=== PATIENT | male | born 1950 | race Caucasian/White ===

== ENCOUNTER → 2019-04-13 | Outpatient (CLI) | payer BC ==
[2019-04-13 11:11] LABS: ALBUMIN 3.3 g/dL (3.4-4.8); POTASSIUM 4.5 mmol/L (3.5-5.1)
[2019-04-13 11:12] LABS: CALCIUM 8.6 mg/dL (8.3-10.5)
[2019-04-13 11:15] LABS: HEMATOCRIT 42.4 % (42.0-52.0); HEMOGLOBIN 14.4 g/dL (13.5-18.0); MEAN CELL VOLUME 97 fl (78-100); MEAN CORPUSCULAR HEMOGLOBIN 33 pg (27-31); MEAN CORPUSCULAR HGB CONC 34 g/dL (33-37); PLATELET COUNT 90 K/mm3 (130-400); RED BLOOD COUNT 4.38 M/mm3 (4.20-5.60); RED CELL DISTRIBUTION WIDTH 15.2 % (11.5-14.5); TOTAL BILIRUBIN 2.4 mg/dL (0.2-1.2); WHITE BLOOD COUNT 5.5 K/mm3 (4.8-10.8)
[2019-04-13 11:20] LABS: PROTHROMBIN TIME 11.3 SECONDS (9.0-12.0)
[2019-04-13 12:15] LABS: LYMPHOCYTE 21 % (20-51); MONOCYTE 11 % (3-10); NEUTROPHILS 62 % (42-75)
== END ==
LOC: LAB 10:49
DX: D69.6 Thrombocytopenia, unspecified (principal); I85.10 Secondary esophageal varices without bleeding; K76.6 Portal hypertension

== ENCOUNTER 2019-09-25 18:27 | Emergency (ER) | payer BC ==
[2019-09-25 18:59] LABS: HEMATOCRIT 40.6 % (42.0-52.0); HEMOGLOBIN 14.1 g/dL (13.5-18.0); MEAN CELL VOLUME 94 fl (78-100); MEAN CORPUSCULAR HEMOGLOBIN 33 pg (27-31); MEAN CORPUSCULAR HGB CONC 35 g/dL (33-37); MEAN PLATELET VOLUME 10.8 fl (7.4-10.4); PLATELET COUNT 63 K/mm3 (130-400); RED BLOOD COUNT 4.31 M/mm3 (4.20-5.60); RED CELL DISTRIBUTION WIDTH 14.9 % (11.5-14.5); WHITE BLOOD COUNT 7.8 K/mm3 (4.8-10.8)
[2019-09-25] MEDS ORDERED: PROAIR HFA0.09 MG/AC IH (19:05)
[2019-09-25 19:07] LABS: NEUTROPHILS 77 % (42-75)
[2019-09-25 19:08] LABS: LYMPHOCYTE 14 % (20-51); MONOCYTE 8 % (3-10)
[2019-09-25] MEDS ORDERED: NADOLOL20 M1 PO (19:08)
[2019-09-25] MEDS ORDERED: ANORO ELLIPTA1 POW IH (19:09)
[2019-09-25] MEDS ORDERED: FUROSEMIDE40 MG PO (19:09)
[2019-09-25] MEDS ORDERED: SPIRONOLACTONE50 M1 PO (19:09)
[2019-09-25 19:10] LABS: ALBUMIN 3.3 g/dL (3.4-4.8); POTASSIUM 3.8 mmol/L (3.5-5.1)
[2019-09-25] MEDS ORDERED: VITAMIN B122500 MC1 PO (19:10)
[2019-09-25] MEDS ORDERED: CRANBERRY500 M3 PO (19:10)
[2019-09-25 19:11] LABS: CALCIUM 8.3 mg/dL (8.3-10.5)
[2019-09-25] MEDS ORDERED: OMEPRAZOLE40 MG PO (19:11)
[2019-09-25 19:12] LABS: TOTAL PROTEIN 6.1 g/dL (6.2-8.1)
[2019-09-25 19:14] LABS: TOTAL BILIRUBIN 4.5 mg/dL (0.2-1.2)
[2019-09-25 19:32] LABS: URINE APPEARANCE CLOUDY; URINE BILIRUBIN NEGATIVE (NEGATIVE); URINE BLOOD TRACE (NEGATIVE); URINE COLOR YELLOW; URINE GLUCOSE NEGATIVE (NEGATIVE); URINE KETONE NEGATIVE (NEGATIVE); URINE LEUKOCYTE ESTERASE 1+ (NEGATIVE); URINE NITRATE POSITIVE (NEGATIVE); URINE PROTEIN(semi-quant) TRACE mg/dL (NEGATIVE); URINE UROBILINOGEN NORMAL (NORMAL); URINE WBC 16-30 /hpf (0-3)
[2019-09-25] MEDS ORDERED: CEFDINIR300 MG PO (20:00)
[2019-09-25 20:52] VITALS: BP 117/79
== END 2019-09-25 20:52 | disposition home or self-care (01) ==
LOC: ED 18:27
PROVIDERS: Family Medicine
DX: N39.0 Urinary tract infection, site not specified (principal); R73.9 Hyperglycemia, unspecified; K74.60 Unspecified cirrhosis of liver; K76.6 Portal hypertension; K21.9 Gastro-esophageal reflux disease without esophagitis
CPT/HCPCS: J0696

== ENCOUNTER → 2019-10-07 | Outpatient (CLI) | payer BC ==
[2019-09-25 20:52] VITALS: BP 117/79
[~2019-10-07] MED LIST: ANORO ELLIPTA1 POW IH; CEFDINIR300 MG PO; CRANBERRY500 M3 PO; FUROSEMIDE40 MG PO; NADOLOL20 M1 PO; OMEPRAZOLE40 MG PO; PROAIR HFA0.09 MG/AC IH; SPIRONOLACTONE50 M1 PO; VITAMIN B122500 MC1 PO
[2019-10-07 17:26] LABS: EOS # 0.4 (0.04-0.40); HEMATOCRIT 39.8 % (42.0-52.0); HEMOGLOBIN 13.6 g/dL (13.5-18.0); LYMPH# 1.8 (1.50-4.00); MEAN CELL VOLUME 93 fl (78-100); MEAN CORPUSCULAR HEMOGLOBIN 32 pg (27-31); MEAN CORPUSCULAR HGB CONC 34 g/dL (33-37); MEAN PLATELET VOLUME 9.2 fl (7.4-10.4); MONO # 0.6 (0.20-0.80); NEU # 3.2 (1.40-6.50); PLATELET COUNT 131 K/mm3 (130-400); RED BLOOD COUNT 4.28 M/mm3 (4.20-5.60); RED CELL DISTRIBUTION WIDTH 14.9 % (11.5-14.5); WHITE BLOOD COUNT 6.2 K/mm3 (4.8-10.8)
[2019-10-07 17:28] LABS: EOS % 7.1 % (0.0-4.0)
[2019-10-07 17:34] LABS: ALBUMIN 3.3 g/dL (3.4-4.8)
[2019-10-07 17:35] LABS: POTASSIUM 4.1 mmol/L (3.5-5.1)
[2019-10-07 17:36] LABS: CALCIUM 8.5 mg/dL (8.3-10.5)
[2019-10-07 17:37] LABS: TOTAL PROTEIN 6.5 g/dL (6.2-8.1)
[2019-10-07 17:39] LABS: TOTAL BILIRUBIN 1.4 mg/dL (0.2-1.2)
== END ==
LOC: LAB 17:01
PROVIDERS: Physician Assistant
DX: N39.0 Urinary tract infection, site not specified (principal); I81 Portal vein thrombosis; K76.6 Portal hypertension

== ENCOUNTER → 2019-12-03 | Outpatient (CLI) | payer BC | LOC: RAD 07:32 | DX: Z12.5 Encounter for screening for malignant neoplasm of prostate (principal); E78.5 Hyperlipidemia, unspecified; K76.0 Fatty (change of) liver, not elsewhere classified; R16.1 Splenomegaly, not elsewhere classified; R73.9 Hyperglycemia, unspecified ==

== ENCOUNTER → 2020-01-15 | Outpatient (CLI) | payer BC ==
[2020-01-15 18:10] LABS: HEMATOCRIT 39.6 % (42.0-52.0); HEMOGLOBIN 13.5 g/dL (13.5-18.0); MEAN CELL VOLUME 93 fl (78-100); MEAN CORPUSCULAR HEMOGLOBIN 32 pg (27-31); MEAN CORPUSCULAR HGB CONC 34 g/dL (33-37); MEAN PLATELET VOLUME 10.3 fl (7.4-10.4); PLATELET COUNT 96 K/mm3 (130-400); RED BLOOD COUNT 4.25 M/mm3 (4.20-5.60); RED CELL DISTRIBUTION WIDTH 15.2 % (11.5-14.5); WHITE BLOOD COUNT 5.2 K/mm3 (4.8-10.8)
[2020-01-15 18:11] LABS: URINE APPEARANCE CLEAR; URINE BILIRUBIN NEGATIVE (NEGATIVE); URINE BLOOD TRACE (NEGATIVE); URINE COLOR YELLOW; URINE GLUCOSE NEGATIVE (NEGATIVE); URINE KETONE NEGATIVE (NEGATIVE); URINE LEUKOCYTE ESTERASE NEGATIVE (NEGATIVE); URINE NITRATE NEGATIVE (NEGATIVE); URINE PROTEIN(semi-quant) TRACE mg/dL (NEGATIVE); URINE UROBILINOGEN NORMAL (NORMAL)
[2020-01-15 18:11] LABS: ALBUMIN 3.4 g/dL (3.4-4.8); POTASSIUM 4.3 mmol/L (3.5-5.1)
[2020-01-15 18:12] LABS: CALCIUM 8.8 mg/dL (8.3-10.5)
[2020-01-15 18:12] LABS: URINE MUCUS PRESENT (NOT PRESENT)
[2020-01-15 18:13] LABS: TOTAL PROTEIN 5.9 g/dL (6.2-8.1)
[2020-01-15 18:15] LABS: LYMPHOCYTE 29 % (20-51); MONOCYTE 13 % (3-10); NEUTROPHILS 50 % (42-75); TOTAL BILIRUBIN 1.8 mg/dL (0.2-1.2)
== END ==
LOC: LAB 17:46
PROVIDERS: Nurse Practitioner
DX: M54.9 Dorsalgia, unspecified (principal)

== ENCOUNTER 2020-05-23 07:31 | Emergency (ER) | payer BC ==
[2020-05-23 08:33] LABS: HEMATOCRIT 40.1 % (42.0-52.0); HEMOGLOBIN 14.1 g/dL (13.5-18.0); MEAN CELL VOLUME 91 fl (78-100); MEAN CORPUSCULAR HEMOGLOBIN 32 pg (27-31); MEAN CORPUSCULAR HGB CONC 35 g/dL (33-37); MEAN PLATELET VOLUME 10.4 fl (7.4-10.4); PLATELET COUNT 89 K/mm3 (130-400); RED BLOOD COUNT 4.41 M/mm3 (4.20-5.60); RED CELL DISTRIBUTION WIDTH 14.4 % (11.5-14.5); WHITE BLOOD COUNT 5.4 K/mm3 (4.8-10.8)
[2020-05-23 08:37] LABS: ALBUMIN 3.3 g/dL (3.4-4.8); POTASSIUM 4.7 mmol/L (3.5-5.1); SODIUM 137 mmol/L (136-145)
[2020-05-23 08:38] LABS: CALCIUM 8.5 mg/dL (8.3-10.5)
[2020-05-23 08:40] LABS: GLUCOSE 186 mg/dL (75-110); TOTAL PROTEIN 6.2 g/dL (6.2-8.1)
[2020-05-23 08:41] LABS: CARBON DIOXIDE 21 mmol/L (23-31); TOTAL BILIRUBIN 1.6 mg/dL (0.2-1.2)
[2020-05-23 08:45] LABS: AST-SGOT 25 U/L (5-34)
[2020-05-23 08:46] LABS: ALT/SGPT 21 U/L (0-55)
[2020-05-23 08:55] LABS: TROPONIN-I < 0.03 ng/mL (<0.030)
[2020-05-23 08:59] LABS: LYMPHOCYTE 19 % (20-51); MONOCYTE 15 % (3-10); NEUTROPHILS 62 % (42-75)
[2020-05-23 09:03] LABS: URINE WBC 0 /hpf (0-3)
[2020-05-23 09:04] LABS: URINE APPEARANCE CLEAR; URINE BILIRUBIN NEGATIVE (NEGATIVE); URINE BLOOD NEGATIVE (NEGATIVE); URINE COLOR YELLOW; URINE GLUCOSE NEGATIVE (NEGATIVE); URINE KETONE NEGATIVE (NEGATIVE); URINE LEUKOCYTE ESTERASE NEGATIVE (NEGATIVE); URINE NITRATE NEGATIVE (NEGATIVE); URINE PROTEIN(semi-quant) NEGATIVE (NEGATIVE); URINE UROBILINOGEN NORMAL (NORMAL)
[2020-05-23 12:52] VITALS: BP 106/63
== END 2020-05-23 11:14 | disposition home or self-care (01) ==
LOC: ED 07:31
PROVIDERS: Nurse Practitioner
DX: E86.0 Dehydration (principal); J44.9 Chronic obstructive pulmonary disease, unspecified; K76.6 Portal hypertension; F17.220 Nicotine dependence, chewing tobacco, uncomplicated; Z90.49 Acquired absence of other specified parts of digestive tract; Z82.49 Family history of ischemic heart disease and other diseases of the circulatory system; Z79.51 Long term (current) use of inhaled steroids
CPT/HCPCS: J7030

== ENCOUNTER → 2020-05-26 | Outpatient (CLI) | payer BC ==
[2020-05-23 12:52] VITALS: BP 106/63
[2020-05-26 16:42] LABS: HEMATOCRIT 39.9 % (42.0-52.0); HEMOGLOBIN 13.9 g/dL (13.5-18.0); MEAN CELL VOLUME 92 fl (78-100); MEAN CORPUSCULAR HEMOGLOBIN 32 pg (27-31); MEAN CORPUSCULAR HGB CONC 35 g/dL (33-37); MEAN PLATELET VOLUME 10.1 fl (7.4-10.4); PLATELET COUNT 99 K/mm3 (130-400); RED BLOOD COUNT 4.35 M/mm3 (4.20-5.60); RED CELL DISTRIBUTION WIDTH 14.8 % (11.5-14.5); WHITE BLOOD COUNT 5.8 K/mm3 (4.8-10.8)
[2020-05-26 16:53] LABS: ALBUMIN 3.3 g/dL (3.4-4.8); POTASSIUM 4.2 mmol/L (3.5-5.1)
[2020-05-26 16:54] LABS: CALCIUM 8.8 mg/dL (8.3-10.5)
[2020-05-26 16:57] LABS: TOTAL BILIRUBIN 2.3 mg/dL (0.2-1.2)
[2020-05-26 17:32] LABS: PROTHROMBIN TIME 11.1 SECONDS (9.0-12.0)
[2020-05-26 18:27] LABS: LYMPHOCYTE 34 % (20-51); MONOCYTE 12 % (3-10); NEUTROPHILS 52 % (42-75)
== END ==
LOC: LAB 16:25
PROVIDERS: Physician Assistant
DX: F44.89 Other dissociative and conversion disorders (principal)

== ENCOUNTER → 2020-05-31 | Outpatient (CLI) | payer BC ==
[2020-05-23 12:52] VITALS: BP 106/63
[2020-05-31 09:21] LABS: HEMATOCRIT 39.6 % (42.0-52.0); HEMOGLOBIN 13.4 g/dL (13.5-18.0); RED BLOOD COUNT 4.2 M/mm3 (4.20-5.60); RED CELL DISTRIBUTION WIDTH 14.7 % (11.5-14.5); WHITE BLOOD COUNT 4.2 K/mm3 (4.8-10.8)
[2020-05-31 09:32] LABS: ALBUMIN 3.3 g/dL (3.4-4.8)
[2020-05-31 09:33] LABS: POTASSIUM 4.5 mmol/L (3.5-5.1)
[2020-05-31 09:34] LABS: CALCIUM 8.5 mg/dL (8.3-10.5)
[2020-05-31 09:37] LABS: TOTAL BILIRUBIN 1.7 mg/dL (0.2-1.2)
== END ==
LOC: LAB 07:43 → RAD 07:43
PROVIDERS: Physician Assistant
DX: G95.89 Other specified diseases of spinal cord (principal); K76.6 Portal hypertension

== ENCOUNTER → 2020-06-08 | Outpatient (CLI) | payer BC ==
[2020-05-23 12:52] VITALS: BP 106/63
== END ==
LOC: RAD 09:28
DX: Z01.812 Encounter for preprocedural laboratory examination (principal); K76.6 Portal hypertension; R16.1 Splenomegaly, not elsewhere classified; I86.8 Varicose veins of other specified sites; K68.9 Other disorders of retroperitoneum; Z90.49 Acquired absence of other specified parts of digestive tract; Z87.81 Personal history of (healed) traumatic fracture
CPT/HCPCS: Q9967

== ENCOUNTER → 2020-09-29 | Outpatient (CLI) | payer BC ==
[2020-09-29 06:56] LABS: BASO # 0.02 (0.02-0.10); EOS # 0.41 (0.04-0.40); EOS % 8.5 % (0.0-4.0); HEMATOCRIT 41.1 % (42.0-52.0); HEMOGLOBIN 14.5 g/dL (13.5-18.0); LYMPH# 1.01 (1.50-4.00); MEAN CELL VOLUME 91 fl (78-100); MEAN CORPUSCULAR HEMOGLOBIN 32 pg (27-31); MEAN CORPUSCULAR HGB CONC 35 g/dL (33-37); MEAN PLATELET VOLUME 10.1 fl (7.4-10.4); MONO # 0.65 (0.20-0.80); NEU # 2.74 (1.40-6.50); PLATELET COUNT 83 K/mm3 (130-400); RED BLOOD COUNT 4.53 M/mm3 (4.20-5.60); RED CELL DISTRIBUTION WIDTH 14.3 % (11.5-14.5); WHITE BLOOD COUNT 4.8 K/mm3 (4.8-10.8)
[2020-09-29 07:24] LABS: PROTHROMBIN TIME 10.4 SECONDS (9.0-12.0)
[2020-09-29 08:48] LABS: ALBUMIN 3.3 g/dL (3.4-4.8)
[2020-09-29 08:49] LABS: POTASSIUM 4.6 mmol/L (3.5-5.1)
[2020-09-29 08:50] LABS: CALCIUM 9.1 mg/dL (8.3-10.5)
[2020-09-29 08:51] LABS: TOTAL PROTEIN 6.7 g/dL (6.2-8.1)
== END ==
LOC: LAB 06:18
PROVIDERS: Physician Assistant
DX: K76.6 Portal hypertension (principal)

== ENCOUNTER → 2020-10-20 | Outpatient (CLI) | payer BC ==
[2020-10-20 08:35] LABS: BASO # 0.02 (0.02-0.10); EOS # 0.34 (0.04-0.40); EOS % 8.5 % (0.0-4.0); HEMATOCRIT 40.3 % (42.0-52.0); HEMOGLOBIN 13.5 g/dL (13.5-18.0); LYMPH# 0.99 (1.50-4.00); MEAN CELL VOLUME 95 fl (78-100); MEAN CORPUSCULAR HEMOGLOBIN 32 pg (27-31); MEAN CORPUSCULAR HGB CONC 34 g/dL (33-37); MEAN PLATELET VOLUME 10.2 fl (7.4-10.4); MONO # 0.57 (0.20-0.80); PLATELET COUNT 78 K/mm3 (130-400); RED BLOOD COUNT 4.23 M/mm3 (4.20-5.60); RED CELL DISTRIBUTION WIDTH 14.9 % (11.5-14.5)
[2020-10-20 08:38] LABS: ALBUMIN 3.3 g/dL (3.4-4.8); POTASSIUM 4.8 mmol/L (3.5-5.1)
[2020-10-20 08:39] LABS: CALCIUM 8.8 mg/dL (8.3-10.5)
[2020-10-20 08:41] LABS: TOTAL PROTEIN 6.1 g/dL (6.2-8.1)
[2020-10-20 08:43] LABS: TOTAL BILIRUBIN 2.3 mg/dL (0.2-1.2)
== END ==
LOC: LAB 07:53
PROVIDERS: Physician Assistant
DX: Z13.29 Encounter for screening for other suspected endocrine disorder (principal); Z12.5 Encounter for screening for malignant neoplasm of prostate; K90.9 Intestinal malabsorption, unspecified; E78.2 Mixed hyperlipidemia; E11.9 Type 2 diabetes mellitus without complications

== ENCOUNTER → 2021-02-22 | Outpatient (CLI) | payer BC | LOC: LAB 17:12 | DX: E11.9 Type 2 diabetes mellitus without complications (principal) ==

== ENCOUNTER → 2021-03-29 | Outpatient (CLI) | payer BC ==
[2021-03-29 07:50] LABS: HEMATOCRIT 41.5 % (42.0-52.0); HEMOGLOBIN 14.1 g/dL (13.5-18.0); MEAN PLATELET VOLUME 9.8 fl (7.4-10.4); RED BLOOD COUNT 4.44 M/mm3 (4.20-5.60); RED CELL DISTRIBUTION WIDTH 14.2 % (11.5-14.5); WHITE BLOOD COUNT 5.6 K/mm3 (4.8-10.8)
[2021-03-29 08:02] LABS: ALBUMIN 3.4 g/dL (3.4-4.8); POTASSIUM 4.6 mmol/L (3.5-5.1)
[2021-03-29 08:03] LABS: CALCIUM 9.2 mg/dL (8.3-10.5)
[2021-03-29 08:05] LABS: TOTAL PROTEIN 7.1 g/dL (6.2-8.1)
[2021-03-29 08:06] LABS: TOTAL BILIRUBIN 1.9 mg/dL (0.2-1.2)
[2021-03-29 08:10] LABS: PROTHROMBIN TIME 11.1 SECONDS (9.0-12.0)
== END ==
LOC: RAD 07:37
PROVIDERS: Internal Medicine Gastroenterology
DX: K76.6 Portal hypertension (principal); I85.10 Secondary esophageal varices without bleeding; D69.6 Thrombocytopenia, unspecified

== ENCOUNTER 2023-04-01 10:15 | Outpatient (RCR) | payer MEDICARE, OTHER | END 2023-04-24 | disposition home or self-care (01) | LOC: PT | DX: M19.012 Primary osteoarthritis, left shoulder (principal); Z96.612 Presence of left artificial shoulder joint ==

== ENCOUNTER 2023-04-25 08:30 | Outpatient (RCR) | payer MEDICARE, OTHER | END 2023-05-23 | disposition home or self-care (01) | LOC: PT | DX: M19.012 Primary osteoarthritis, left shoulder (principal); Z96.612 Presence of left artificial shoulder joint ==

== ENCOUNTER → 2023-09-30 | Outpatient (CLI) | payer MEDICARE ==
[2023-09-30 09:32] LABS: BASO # 0.05 K/mm3 (0.02-0.10); EOS # 0.45 K/mm3 (0.04-0.40); EOS % 7.6 % (0.0-4.0); HEMATOCRIT 40.6 % (42.0-52.0); HEMOGLOBIN 13.8 g/dL (13.5-18.0); LYMPH# 1.19 K/mm3 (1.50-4.00); MEAN CELL VOLUME 92 fl (78-100); MEAN CORPUSCULAR HEMOGLOBIN 31 pg (27-31); MEAN CORPUSCULAR HGB CONC 34 g/dL (33-37); MEAN PLATELET VOLUME 10.3 fl (7.4-10.4); MONO # 0.79 K/mm3 (0.20-0.80); NEU # 3.44 K/mm3 (1.40-6.50); PLATELET COUNT 106 K/mm3 (130-400); RED BLOOD COUNT 4.41 M/mm3 (4.20-5.60); RED CELL DISTRIBUTION WIDTH 14.4 % (11.5-14.5); WHITE BLOOD COUNT 5.9 K/mm3 (4.8-10.8)
[2023-09-30 09:34] LABS: ALBUMIN 3.6 g/dL (3.4-4.8)
[2023-09-30 09:35] LABS: CALCIUM 9.2 mg/dL (8.3-10.5)
[2023-09-30 09:36] LABS: TOTAL PROTEIN 6.3 g/dL (6.2-8.1)
[2023-09-30 09:38] LABS: TOTAL BILIRUBIN 1.3 mg/dL (0.2-1.2)
== END ==
LOC: LAB 09:17
PROVIDERS: Physician Assistant
DX: Z12.5 Encounter for screening for malignant neoplasm of prostate (principal); D69.6 Thrombocytopenia, unspecified; E11.9 Type 2 diabetes mellitus without complications; E78.2 Mixed hyperlipidemia; R60.0 Localized edema

== ENCOUNTER → 2024-01-14 | Outpatient (CLI) | payer MEDICARE ==
[2024-01-14 09:35] LABS: BASO # 0.03 K/mm3 (0.02-0.10); EOS # 0.42 K/mm3 (0.04-0.40); EOS % 8.2 % (0.0-4.0); HEMATOCRIT 39.2 % (42.0-52.0); HEMOGLOBIN 13.4 g/dL (13.5-18.0); LYMPH# 1.17 K/mm3 (1.50-4.00); MEAN CELL VOLUME 96 fl (78-100); MEAN CORPUSCULAR HEMOGLOBIN 33 pg (27-31); MEAN CORPUSCULAR HGB CONC 34 g/dL (33-37); MEAN PLATELET VOLUME 9.9 fl (7.4-10.4); MONO # 0.68 K/mm3 (0.20-0.80); PLATELET COUNT 81 K/mm3 (130-400); RED CELL DISTRIBUTION WIDTH 14.6 % (11.5-14.5); WHITE BLOOD COUNT 5.1 K/mm3 (4.8-10.8)
[2024-01-14 09:41] LABS: ALBUMIN 3.5 g/dL (3.4-4.8)
[2024-01-14 09:44] LABS: TOTAL PROTEIN 6.1 g/dL (6.2-8.1)
[2024-01-14 09:45] LABS: TOTAL BILIRUBIN 1.9 mg/dL (0.2-1.2)
== END ==
LOC: RAD 08:37
PROVIDERS: Internal Medicine Gastroenterology
DX: K74.60 Unspecified cirrhosis of liver (principal); K76.82 Hepatic encephalopathy; D69.6 Thrombocytopenia, unspecified

== ENCOUNTER → 2024-07-03 | Outpatient (CLI) | payer MEDICARE ==
[2024-07-03 08:30] LABS: BASO # 0.02 K/mm3 (0.02-0.10); EOS # 0.47 K/mm3 (0.04-0.40); EOS % 8.5 % (0.0-4.0); HEMATOCRIT 41.4 % (42.0-52.0); HEMOGLOBIN 14.3 g/dL (13.5-18.0); LYMPH# 1.02 K/mm3 (1.50-4.00); MEAN CELL VOLUME 95 fl (78-100); MEAN CORPUSCULAR HEMOGLOBIN 33 pg (27-31); MEAN CORPUSCULAR HGB CONC 35 g/dL (33-37); MEAN PLATELET VOLUME 10.1 fl (7.4-10.4); MONO # 0.66 K/mm3 (0.20-0.80); NEU # 3.37 K/mm3 (1.40-6.50); PLATELET COUNT 86 K/mm3 (130-400); RED BLOOD COUNT 4.38 M/mm3 (4.20-5.60); RED CELL DISTRIBUTION WIDTH 13.9 % (11.5-14.5); WHITE BLOOD COUNT 5.6 K/mm3 (4.8-10.8)
[2024-07-03 08:32] LABS: ALBUMIN 3.6 g/dL (3.4-4.8)
[2024-07-03 08:35] LABS: TOTAL PROTEIN 6.9 g/dL (6.2-8.1)
[2024-07-03 08:37] LABS: TOTAL BILIRUBIN 1.4 mg/dL (0.2-1.2)
[2024-07-03 08:58] LABS: PROTHROMBIN TIME 10.7 SECONDS (9.0-12.0)
== END ==
LOC: RAD 08:15
PROVIDERS: Internal Medicine Gastroenterology
DX: K74.60 Unspecified cirrhosis of liver (principal); K76.82 Hepatic encephalopathy; R16.1 Splenomegaly, not elsewhere classified